=== PATIENT | female | born 1990 | race Caucasian/White ===

== ENCOUNTER 2020-04-15 08:46 | Emergency (ER) | payer BC, OTHER ==
[~2020-04-15] VITALS: Ht 165.1 cm; Wt 68.0 kg
--- NOTE | 2020-04-15 09:41 | NUR ---
Patient discharged to home in stable condition. Written and verbal after care instructions given. Patient verbalizes understanding of instructions. Stressed follow up or return to ER for worsening s/s.pt walks in steady gait.
== END 2020-04-15 09:42 | disposition home or self-care (01) ==
LOC: ER 08:46
DX: S90.31XA Contusion of right foot, initial encounter (principal); X50.1XXA Overexertion from prolonged static or awkward postures, initial encounter; Y93.01 Activity, walking, marching and hiking; Y92.89 Other specified places as the place of occurrence of the external cause
CPT/HCPCS: 73630; A4663